=== PATIENT | female | born 1940 | race African-American/Black ===

== ENCOUNTER 2020-03-06 10:33 | Outpatient (CLI) | payer MEDICARE ==
--- NOTE | 2020-03-06 11:35 | ULT ---
US Renal Bilateral STANDARD HISTORY: Chronic renal disease COMPARISON: None. FINDINGS: Exam is limited due to patient's body habitus. The right kidney measures 7 cm in length and the left kidney measures 10 cm in length. No focal mass or hydronephrosis is seen on either side. The urinary bladder is unremarkable with a tiny amount of post void residual. IMPRESSION: Atrophic right kidney
== END 2020-03-06 10:34 | disposition home or self-care (01) ==
LOC: MADLAB 10:33
PROVIDERS: ATTEND Internal Medicine Nephrology
DX: N18.30 Chronic kidney disease, stage 3 unspecified (principal); N26.1 Atrophy of kidney (terminal)
CPT/HCPCS: 76770

== ENCOUNTER 2020-05-20 16:31 | Emergency (ER) | payer MEDICARE ==
[2020-05-20] MEDS ORDERED: Azithromycin 250 MG TAB ONE (17:39)
== END 2020-05-20 17:45 | disposition home or self-care (01) ==
LOC: MADERS 16:31
DX: J01.90 Acute sinusitis, unspecified (principal); B96.89 Other specified bacterial agents as the cause of diseases classified elsewhere; M10.9 Gout, unspecified; E78.5 Hyperlipidemia, unspecified; I12.9 Hypertensive chronic kidney disease with stage 1 through stage 4 chronic kidney disease, or unspecified chronic kidney disease; N18.9 Chronic kidney disease, unspecified; Z79.899 Other long term (current) drug therapy
CPT/HCPCS: 99283

== ENCOUNTER 2020-09-18 09:48 | Emergency (ER) | payer MEDICARE | END 2020-09-18 10:49 | disposition home or self-care (01) | LOC: MADERS 09:48 | DX: G56.01 Carpal tunnel syndrome, right upper limb (principal); M10.9 Gout, unspecified; M19.90 Unspecified osteoarthritis, unspecified site; I12.9 Hypertensive chronic kidney disease with stage 1 through stage 4 chronic kidney disease, or unspecified chronic kidney disease; N18.9 Chronic kidney disease, unspecified; E78.5 Hyperlipidemia, unspecified; Z79.82 Long term (current) use of aspirin; Z79.899 Other long term (current) drug therapy | CPT/HCPCS: 99283 ==

== ENCOUNTER 2022-11-20 08:37 | Emergency (ER) | payer MEDICARE ==
[2022-11-20] MEDS ORDERED: Lidocaine 1% PF 5 ML VIAL ONE (09:05)
[2022-11-20] MEDS ORDERED: Clindamycin 150 MG CAP ONE (09:26)
== END 2022-11-20 09:31 | disposition home or self-care (01) ==
LOC: MADERS 08:37
DX: L03.011 Cellulitis of right finger (principal); I12.9 Hypertensive chronic kidney disease with stage 1 through stage 4 chronic kidney disease, or unspecified chronic kidney disease; N18.9 Chronic kidney disease, unspecified; M19.90 Unspecified osteoarthritis, unspecified site; M10.9 Gout, unspecified; E78.00 Pure hypercholesterolemia, unspecified; I73.9 Peripheral vascular disease, unspecified; Z79.82 Long term (current) use of aspirin; Z79.899 Other long term (current) drug therapy
CPT/HCPCS: 10060; 87070; 87205